=== PATIENT | female | born 1995 | race Caucasian/White ===

== ENCOUNTER → 2019-03-23 | Outpatient (CLI) | payer OTHER, SELFPAY ==
[2019-03-23 12:28] LABS: Internal QC Validated? YES +Cl - CLEAR BKGD
[2019-03-23 12:29] LABS: Pregnancy, Urine Negative Negative
== END | disposition home or self-care (01) ==
LOC: MTLAB 10:51
PROVIDERS: Referring Provider Physician Assistant Medical; Visit Provider Physician Assistant Medical
DX: L70.0 Acne vulgaris (principal)
CPT/HCPCS: 81025

== ENCOUNTER → 2019-04-27 09:29 | Outpatient (CLI) | payer OTHER, SELFPAY ==
[2019-04-27 12:05] LABS: Internal QC Validated? YES +Cl - CLEAR BKGD; Pregnancy, Urine Negative Negative
== END ==
PROVIDERS: Referring Provider Physician Assistant Medical; Visit Provider Physician Assistant Medical
DX: L70.0 Acne vulgaris (principal); Z79.899 Other long term (current) drug therapy
CPT/HCPCS: 81025